=== PATIENT | male | born 1990 | race Caucasian/White ===

== ENCOUNTER 2017-02-09 20:05 | Emergency (ER) | payer OTHER ==
--- NOTE | 2017-02-14 13:30 | ER ---
ADMIT: 02/09/2017 RM/LOC: ER [facility] MR#: [id number] [place], [place] [id number] LE[address]ER SHER [address] [place] [id number] Emergency Room Report SEX: M AGE: 26 : 1990 DATE: 02/09/2017 ADDENDUM: This patient comes into the ER because he is having an anxiety attack. He was recently started on a new medication. He thinks it is not making him sleep and he has not slept for a few days. He is feeling very anxious. Plan is to see his physician tomorrow to discuss possibly changing this medication. On physical exam, he is alert and oriented. His lungs are clear. Abdomen is soft. He denies any chest pain. He has been able to eat and drink normally. He was given Ativan 1 mg IM and we will have him follow up with his primary tomorrow. Please see my T-sheet. JOSEFINA Arceo / Jordan Nelson MD / modl JOB #: [id number] CC: Jordan Nelson MD, Attending Physician Drea Navas, MSN ROOF BOLTER, Family Physician
== END 2017-02-09 20:30 | disposition home or self-care (01) ==
LOC: ER 20:05
DX: F41.9 Anxiety disorder, unspecified (principal); F17.210 Nicotine dependence, cigarettes, uncomplicated; Z79.899 Other long term (current) drug therapy